=== PATIENT | female | born 2000 | race Two or more races ===

== ENCOUNTER 2022-09-09 20:02 | Emergency (ER) | payer OTHER ==
[~2022-09-09] VITALS: Ht 165.1 cm; Wt 56.7 kg
[2022-09-09] MEDS ORDERED: PEPCID AC20 MG PO (23:55)
[2022-09-09] MEDS ORDERED: ONDANSETRON ODT8 MG PO (23:55)
== END 2022-09-10 00:12 | disposition home or self-care (01) ==
LOC: ER 20:02
DX: K52.9 Noninfective gastroenteritis and colitis, unspecified (principal); Z20.822 Contact with and (suspected) exposure to COVID-19